=== PATIENT | male | born 1960 | race Caucasian/White ===

== ENCOUNTER 2016-09-24 14:56 | Observation (INO) | payer OTHER ==
[~2016-09-24 14:56] MED LIST: CARVEDILOL25 M1 PO; CHLORTHALIDONE25 M1 PO; HUMALOG100 UNIT/1 SQ; LEVEMIR100 UNITS/ SC; PROTONIX40 M2 PO
[2016-09-24] MEDS ORDERED: HUMULIN R500 UNIT/2 SC (15:07)
[2016-09-24] MEDS ORDERED: ALLOPURINOL300 M1 PO (15:09)
[2016-09-24] MEDS ORDERED: FLOMAX0.4 M1 PO (15:09)
[2016-09-24] MEDS ORDERED: NORVASC10 M2 PO (15:09)
[2016-09-24] MEDS ORDERED: PERCOCET 5-3251 EACH PO (15:10)
[2016-09-24 15:36] LABS: BASO % 0.2 % (0-2); EOS % 1.1 % (0-7); EOSINOPHIL ABSOLUTE COUNT 0.1 tho/cmm (0.0-0.7); HCT-HEMATOCRIT 47.3 % (36.0-53.5); HGB-HEMOGLOBIN 17.2 gm/dl (13.5-17.0); IMMATURE GRANULOCYTES ABSOLUTE 0.05 tho/cmm (0-0.03); IMMATURE GRANULOCYTES PERCENT 0.5 % (0-0.3); LYMPH % 28.5 % (20-45); LYMPH ABSOLUTE COUNT 2.9 tho/cmm (0.8-4.5); MCH (MEAN CORPUSCULAR HGB) 30.1 pg (28.0-32.0); MCHC MEAN CORPUSCULAR HGB CONC 36.4 % (32.0-36.0); MCV (MEAN CELL VOLUME) 82.7 fl (82.0-96.0); MEAN PLATELET VOLUME 10.3 cmc (9.4-12.4); MONO % 7.9 % (0-12); MONOCYTE ABSOLUTE COUNT 0.8 tho/cmm (0.0-1.2); NEUTROPHIL ABSOLUTE COUNT 6.3 tho/cmm (1.6-8.0); NEUTROPHIL-AUTOMATED 6.3 tho/cmm (1.6-8.0); NEUTROPHILS % 61.8 % (40-80); PLATELET COUNT 219 tho/cmm (150-450); RED BLOOD COUNT 5.72 mil/cmm (4.40-5.70); RED CELL DISTRIBUTION WIDTH 13.1 % (12.4-16.4); WHITE BLOOD COUNT 10.2 tho/cmm (4.0-10.0)
[2016-09-24 15:48] LABS: ANION GAP 18 mmol/L (0-20); BLOOD UREA NITROGEN 18 mg/dl (6-24); CALCIUM 8.4 mg/dl (8.5-10.5); CARBON DIOXIDE-VENOUS 24 mmol/L (22-32); CHLORIDE 98 mmol/l (96-110); CREATININE 2.34 mg/dl (0.60-1.30); GLUCOSE 394 mg/dL (70-110); SODIUM 136 mmol/L (135-145); eGFR VALUE FOR BLACK 35 mL/Min
[2016-09-24 15:49] LABS: POTASSIUM 3.8 mmol/L (3.7-5.1)
[2016-09-24] MEDS ORDERED: COLCRYS0.6 M1 PO (16:34)
[2016-09-24] MEDS ORDERED: BACTRIM DS TAB1 EAC2 PO (16:39)
[2016-09-24 17:08] LABS: URINE LEUKOCYTE ESTERASE POSITIVE (NEG); URINE PROTEIN MODERATE (NEG)
[2016-09-24 17:11] LABS: URINE APPEARANCE CLEAR; URINE BILIRUBIN NEGATIVE (NEG); URINE BLOOD SMALL (NEG); URINE COLOR YELLOW; URINE GLUCOSE (UA) LARGE (NEG); URINE KETONE SMALL (NEG); URINE NITRITE NEGATIVE (NEG)
[2016-09-24 17:21] LABS: URINE RBC 0-1 /[HPF] (0-5)
[2016-09-25 05:58] LABS: BASO % 0.3 % (0-2); EOS % 1.9 % (0-7); EOSINOPHIL ABSOLUTE COUNT 0.2 tho/cmm (0.0-0.7); HCT-HEMATOCRIT 39.1 % (36.0-53.5); HGB-HEMOGLOBIN 13.6 gm/dl (13.5-17.0); IMMATURE GRANULOCYTES ABSOLUTE 0.06 tho/cmm (0-0.03); IMMATURE GRANULOCYTES PERCENT 0.8 % (0-0.3); LYMPH % 32.3 % (20-45); LYMPH ABSOLUTE COUNT 2.6 tho/cmm (0.8-4.5); MCH (MEAN CORPUSCULAR HGB) 29.3 pg (28.0-32.0); MCHC MEAN CORPUSCULAR HGB CONC 34.8 % (32.0-36.0); MCV (MEAN CELL VOLUME) 84.3 fl (82.0-96.0); MEAN PLATELET VOLUME 9.9 cmc (9.4-12.4); MONO % 7.3 % (0-12); MONOCYTE ABSOLUTE COUNT 0.6 tho/cmm (0.0-1.2); NEUTROPHIL ABSOLUTE COUNT 4.6 tho/cmm (1.6-8.0); NEUTROPHIL-AUTOMATED 4.6 tho/cmm (1.6-8.0); NEUTROPHILS % 57.4 % (40-80); PLATELET COUNT 175 tho/cmm (150-450); RED BLOOD COUNT 4.64 mil/cmm (4.40-5.70); WHITE BLOOD COUNT 7.9 tho/cmm (4.0-10.0)
[2016-09-25 06:23] LABS: ALBUMIN 2.8 g/dl (3.5-5.0); ALT/SGPT 55 U/L (12-78); BLOOD UREA NITROGEN 18 mg/dl (6-24); CALCIUM 7.5 mg/dl (8.5-10.5); CARBON DIOXIDE-VENOUS 27 mmol/L (22-32); CHLORIDE 104 mmol/l (96-110); GLUCOSE 265 mg/dL (70-110); SODIUM 141 mmol/L (135-145); eGFR VALUE FOR BLACK 38 mL/Min
[2016-09-25 06:25] LABS: ALKALINE PHOSPHATASE 50 U/L (33-138); ANION GAP 14 mmol/L (0-20); BILIRUBIN,TOTAL 0.5 mg/dl (0.0-1.5)
[2016-09-25 06:26] LABS: ALB/GLOB RATIO 0.9 (0.8-2.0); AST/SGOT 42 U/L (10-40); POTASSIUM 3.6 mmol/L (3.7-5.1)
[2016-09-25] MEDS ORDERED: ZOFRAN4 M2 PO (12:27)
[2016-09-25] MEDS ORDERED: TYLENOL325 M2 PO (12:42)
[2016-09-25] MEDS ORDERED: CALCIUM500 M4 PO (12:44)
[2016-12-25] MEDS ORDERED: HUMALOG MI100 UNIT/4 (21:32)
[2016-12-26] MEDS ORDERED: PREDNISONE PO (13:46)
[2016-12-26] MEDS ORDERED: NORCO 5-325 TA1 EACH PO (13:47)
[2016-12-26] MEDS ORDERED: ULTRAM50 M1 PO (13:49)
[2016-12-26] MEDS ORDERED: MIRALAX17 G2 PO (13:50)
[2017-04-07] MEDS ORDERED: NEURONTIN300 M1 PO (13:27)
[2017-04-07] MEDS ORDERED: HUMULIN R500 UNIT/1 SC (13:28)
== END 2016-09-25 13:30 ==
LOC: EDMED 14:56 → EMR2 18:39 → CAR1 18:45
PROVIDERS: Emergency Medicine; Internal Medicine; ADMIT Hospitalist
DX: R10.9 Unspecified abdominal pain (principal); N20.0 Calculus of kidney; I12.9 Hypertensive chronic kidney disease with stage 1 through stage 4 chronic kidney disease, or unspecified chronic kidney disease; N18.3 Chronic kidney disease, stage 3 (moderate); E11.22 Type 2 diabetes mellitus with diabetic chronic kidney disease; N17.9 Acute kidney failure, unspecified; K21.9 Gastro-esophageal reflux disease without esophagitis; Z79.2 Long term (current) use of antibiotics; Z79.4 Long term (current) use of insulin; Z79.899 Other long term (current) drug therapy; Z88.5 Allergy status to narcotic agent; Z87.891 Personal history of nicotine dependence; Z86.73 Personal history of transient ischemic attack (TIA), and cerebral infarction without residual deficits; Z98.890 Other specified postprocedural states
CPT/HCPCS: G0378; J0780; J1170; J1815; J2405; J7030

== ENCOUNTER 2016-11-10 18:27 | Inpatient (IN) | payer OTHER ==
[~2016-11-10 18:27] MED LIST changes: +ALLOPURINOL300 M1 PO; +BACTRIM DS TAB1 EAC2 PO; +CALCIUM500 M4 PO; +COLCRYS0.6 M1 PO; +FLOMAX0.4 M1 PO; +HUMULIN R500 UNIT/2 SC; +NORVASC10 M2 PO; +PERCOCET 5-3251 EACH PO; +TYLENOL325 M2 PO; +ZOFRAN4 M2 PO
[2016-11-10 19:46] LABS: BASO % 0.4 % (0-2); EOS % 1.2 % (0-7); EOSINOPHIL ABSOLUTE COUNT 0.1 tho/cmm (0.0-0.7); HCT-HEMATOCRIT 42.6 % (36.0-53.5); HGB-HEMOGLOBIN 15.4 gm/dl (13.5-17.0); IMMATURE GRANULOCYTES ABSOLUTE 0.04 tho/cmm (0-0.03); IMMATURE GRANULOCYTES PERCENT 0.5 % (0-0.3); LYMPH % 42.4 % (20-45); LYMPH ABSOLUTE COUNT 3.6 tho/cmm (0.8-4.5); MCH (MEAN CORPUSCULAR HGB) 30.4 pg (28.0-32.0); MCHC MEAN CORPUSCULAR HGB CONC 36.2 % (32.0-36.0); MEAN PLATELET VOLUME 10.3 cmc (9.4-12.4); MONO % 8.6 % (0-12); MONOCYTE ABSOLUTE COUNT 0.7 tho/cmm (0.0-1.2); NEUTROPHILS % 46.9 % (40-80); PLATELET COUNT 188 tho/cmm (150-450); RED BLOOD COUNT 5.07 mil/cmm (4.40-5.70); RED CELL DISTRIBUTION WIDTH 13.7 % (12.4-16.4); WHITE BLOOD COUNT 8.5 tho/cmm (4.0-10.0)
[2016-11-10] MEDS ORDERED: HUMALOG U SC (19:59)
[2016-11-10] MEDS ORDERED: HYDROCHLOROTHIA25 M1 PO (20:00)
[2016-11-10 20:03] LABS: ANION GAP 16 mmol/L (0-20); BLOOD UREA NITROGEN 41 mg/dl (6-24); CALCIUM 9.8 mg/dl (8.5-10.5); CARBON DIOXIDE-VENOUS 24 mmol/L (22-32); CHLORIDE 103 mmol/l (96-110); GLUCOSE 182 mg/dL (70-110); MAGNESIUM 1.3 mg/dl (1.8-2.6); POTASSIUM 3.1 mmol/L (3.7-5.1); SODIUM 140 mmol/L (135-145); eGFR VALUE FOR BLACK 36 mL/Min
[2016-11-11 02:03] LABS: BASO % 0.3 % (0-2); EOS % 1.9 % (0-7); EOSINOPHIL ABSOLUTE COUNT 0.1 tho/cmm (0.0-0.7); HCT-HEMATOCRIT 40.7 % (36.0-53.5); HGB-HEMOGLOBIN 14.7 gm/dl (13.5-17.0); IMMATURE GRANULOCYTES ABSOLUTE 0.03 tho/cmm (0-0.03); IMMATURE GRANULOCYTES PERCENT 0.4 % (0-0.3); LYMPH % 40.1 % (20-45); LYMPH ABSOLUTE COUNT 2.7 tho/cmm (0.8-4.5); MCH (MEAN CORPUSCULAR HGB) 30.4 pg (28.0-32.0); MCHC MEAN CORPUSCULAR HGB CONC 36.1 % (32.0-36.0); MCV (MEAN CELL VOLUME) 84.3 fl (82.0-96.0); MEAN PLATELET VOLUME 9.9 cmc (9.4-12.4); MONO % 7.3 % (0-12); MONOCYTE ABSOLUTE COUNT 0.5 tho/cmm (0.0-1.2); NEUTROPHIL ABSOLUTE COUNT 3.4 tho/cmm (1.6-8.0); NEUTROPHIL-AUTOMATED 3.4 tho/cmm (1.6-8.0); PLATELET COUNT 172 tho/cmm (150-450); RED BLOOD COUNT 4.83 mil/cmm (4.40-5.70); RED CELL DISTRIBUTION WIDTH 13.5 % (12.4-16.4); WHITE BLOOD COUNT 6.8 tho/cmm (4.0-10.0)
[2016-11-11 02:23] LABS: C-REACTIVE PROTEIN 0.4 mg/dl (0-0.9); MAGNESIUM 1.6 mg/dl (1.8-2.6)
[2016-11-11 02:24] LABS: ESR-ERYTHROCYTE SED RATE 10 mm/hr (0-20)
[2016-11-11 07:01] LABS: URINE LEUKOCYTE ESTERASE NEGATIVE (NEG); URINE PROTEIN MODERATE (NEG); URINE SPECIFIC GRAVITY 1.015 (1.003-1.030)
[2016-11-11 07:03] LABS: URINE APPEARANCE CLEAR; URINE BILIRUBIN NEGATIVE (NEG); URINE BLOOD NEGATIVE (NEG); URINE COLOR YELLOW; URINE GLUCOSE (UA) MODERATE (NEG); URINE KETONE NEGATIVE (NEG); URINE NITRITE NEGATIVE (NEG)
[2016-11-11 07:14] LABS: URINE EPITHELIAL CELLS 0-2 /[HPF] (0-10); URINE RBC 0 /[HPF] (0-5); URINE WBC 0-1 /[HPF] (0-5)
[2016-11-12 05:27] LABS: BLOOD UREA NITROGEN 29 mg/dl (6-24); CALCIUM 8.4 mg/dl (8.5-10.5); CARBON DIOXIDE-VENOUS 28 mmol/L (22-32); CHLORIDE 104 mmol/l (96-110); CREATININE 2.08 mg/dl (0.60-1.30); GLUCOSE 206 mg/dL (70-110); SODIUM 140 mmol/L (135-145); eGFR VALUE FOR BLACK 41 mL/Min
[2016-11-12 05:33] LABS: ANION GAP 11 mmol/L (0-20); MAGNESIUM 1.4 mg/dl (1.8-2.6); POTASSIUM 3.2 mmol/L (3.7-5.1)
[2016-11-12] MEDS ORDERED: MAGNESIUM OXID400 M1 PO (14:04)
[2016-12-25] MEDS ORDERED: HUMALOG MI100 UNIT/4 (21:32)
[2016-12-26] MEDS ORDERED: PREDNISONE PO (13:46)
[2016-12-26] MEDS ORDERED: NORCO 5-325 TA1 EACH PO (13:47)
[2016-12-26] MEDS ORDERED: ULTRAM50 M1 PO (13:49)
[2016-12-26] MEDS ORDERED: MIRALAX17 G2 PO (13:50)
[2017-04-07] MEDS ORDERED: NEURONTIN300 M1 PO (13:27)
[2017-04-07] MEDS ORDERED: HUMULIN R500 UNIT/1 SC (13:28)
[2017-04-08] MEDS ORDERED: LOPID600 M1 PO (11:58)
== END 2016-11-12 14:45 | DRG 74 ==
LOC: EDMED 18:27 → EMR2 11-11 01:02 → 5WE 11-11 01:26
PROVIDERS: Emergency Medicine; Family Medicine; Internal Medicine; ADMIT Hospitalist
DX: G62.9 Polyneuropathy, unspecified (principal); N17.9 Acute kidney failure, unspecified; Z68.41 Body mass index [BMI] 40.0-44.9, adult; E11.9 Type 2 diabetes mellitus without complications; I10 Essential (primary) hypertension
CPT/HCPCS: A9540; A9558; G8978-GP-CH; G8979-GP-CH; G8980-GP-CH; J1170; J1650; J1815; J2405; J3475; J3480; J7030; J7050